=== PATIENT | male | born 1945 ===

== ENCOUNTER 2020-11-17 06:29 | Day surgery (SDC) | payer OTHER ==
[~2020-11-17 06:29] MED LIST: ALDACT PO; ALPR PO; COREG PO; LASIX PO; LOSART PO; XARELTO PO; [UNRECOGNIZED DRUG - OTHER] PO
[2020-11-17] MEDS ORDERED: PERCOCET 5-3251 EACH PO (11:00)
== END 2020-11-17 17:40 | disposition home or self-care (01) ==
LOC: CIR.AMB 06:29
PROVIDERS: ATTEND Surgery
DX: K64.8 Other hemorrhoids (principal); K64.4 Residual hemorrhoidal skin tags; Z20.822 Contact with and (suspected) exposure to COVID-19